=== PATIENT | female | born 1950 | race Caucasian/White ===

== ENCOUNTER 2021-05-16 08:49 | Inpatient (IN) ==
[2021-05-16] MEDS ORDERED: Ondansetron ODT 4 MG TAB.RAPDIS SL PRN (11:56)
[2021-05-16] MEDS ORDERED: Acetaminophen 325 MG TABLET PO PRN (11:56)
[2021-05-16] MEDS ORDERED: Naloxone 0.4 MG/ML INJ IVP PRN (11:56)
[2021-05-16] MEDS: *HR* OxyCODONE Immed Rel 5 MG TABLET PO PRN ×2 (12:10→16:03)
[2021-05-16] MEDS: *HR* HYDROmorphone (PF) 1 MG/ML SYRINGE IVP PRN ×2 (14:52→21:44)
[2021-05-16] MEDS: cloNIDine HCL 0.1 MG TABLET PO PRN (19:47)
[2021-05-16] MEDS ORDERED: *HR* LORazepam 2 MG/ML VIAL IVP ONE (22:01)
[2021-05-17] MEDS: *HR* OxyCODONE Immed Rel 5 MG TABLET PO PRN ×2 (00:33→12:42)
[2021-05-17] MEDS: *HR* HYDROmorphone (PF) 1 MG/ML SYRINGE IVP PRN ×2 (03:26→22:30)
[2021-05-17 04:40] LABS: Hemoglobin 11.4 g/dL (11.5-15.4); Mean Corpuscular HGB Conc 30.8 g/dL (31.6-35.5); Mean Corpuscular Hemoglobin 27.4 pg (28.0-33.3); Mean Corpuscular Volume 88.9 fL (83.0-100.0); Mean Platelet Volume 11.6 fL (9.4-12.4); Platelet Count 272 K/mcL (140-400); Red Blood Count 4.16 M/mcL (3.82-4.97); Red Cell Distribution Width 14.9 % (11.5-14.5); White Blood Count 9.7 K/mcL (4.3-11.1)
[2021-05-17 04:54] LABS: BUN/Creatinine Ratio 18 (6-26); Blood Urea Nitrogen 10 mg/dL (8-23); Calcium 8.8 mg/dL (8.6-10.3); Carbon Dioxide 25 mEq/L (23-29); Chloride 100 mEq/L (98-107); Glucose 91 mg/dL (70-105); Osmolality,Calculated 279 (280-300); Potassium 4.2 mEq/L (3.5-5.1); Sodium 135 mEq/L (136-145); eGFR For African Americans > 60 (> 60); eGFR For Non-African Americans > 60 (> 60)
[2021-05-17] MEDS: amLODIPine 5 MG TABLET PO SCH (08:03)
[2021-05-17] MEDS: Aspirin Enteric Coated 81 MG Tablet PO SCH (08:03)
[2021-05-17] MEDS ORDERED: Clindamycin 900 MG/50 ML 900 MG/50 ML IV.SOLN IVPB ONE (14:57)
[2021-05-17] MEDS: cloNIDine HCL 0.1 MG TABLET PO PRN (20:03)
[2021-05-18 01:48] LABS: Hematocrit 36.4 % (35.3-44.9); Hemoglobin 11.8 g/dL (11.5-15.4); Mean Corpuscular HGB Conc 32.4 g/dL (31.6-35.5); Mean Corpuscular Hemoglobin 28.4 pg (28.0-33.3); Mean Corpuscular Volume 87.5 fL (83.0-100.0); Mean Platelet Volume 11.7 fL (9.4-12.4); Platelet Count 254 K/mcL (140-400); Red Blood Count 4.16 M/mcL (3.82-4.97); Red Cell Distribution Width 15.1 % (11.5-14.5); White Blood Count 13.6 K/mcL (4.3-11.1)
[2021-05-18 01:56] LABS: BUN/Creatinine Ratio 27 (6-26); Blood Urea Nitrogen 16 mg/dL (8-23); Calcium 8.9 mg/dL (8.6-10.3); Carbon Dioxide 24 mEq/L (23-29); Chloride 98 mEq/L (98-107); Glucose 125 mg/dL (70-105); Osmolality,Calculated 281 (280-300); Sodium 134 mEq/L (136-145); eGFR For African Americans > 60 (> 60); eGFR For Non-African Americans > 60 (> 60)
[2021-05-18] MEDS: *HR* HYDROmorphone (PF) 1 MG/ML SYRINGE IVP PRN (06:20)
[2021-05-18] MEDS ORDERED: *HR* Rocuronium Bromide 50 MG/5 ML VIAL ONE (08:32)
[2021-05-18] MEDS ORDERED: Lidocaine HCL 4 ML Topical Solution (Laryng-O-Jet Kit Sterile Pak) TP ONE (08:32)
[2021-05-18] MEDS ORDERED: *HR* Succinylcholine 200 MG/10 ML VIAL IVP ONE (08:32)
[2021-05-18] MEDS ORDERED: Lidocaine -MPF 2% 2 ML VIAL ONE (08:32)
[2021-05-18] MEDS ORDERED: Ondansetron 4 MG/2 ML VIAL ONE (08:32)
[2021-05-18] MEDS: Aspirin Enteric Coated 81 MG Tablet PO SCH (08:42)
[2021-05-18] MEDS: amLODIPine 5 MG TABLET PO SCH (08:42)
[2021-05-18] MEDS ORDERED: *HR* HYDROmorphone PF 0.5 MG/0.5 ML SYRINGE IVP PRN ×2 (09:05→12:53)
[2021-05-18] MEDS ORDERED: Ondansetron 4 MG/2 ML VIAL IVP PRN ×2 (09:05→12:53)
[2021-05-18] MEDS ORDERED: *HR* Propofol 200 MG/20 ML VIAL IVP ONE (09:11)
[2021-05-18] MEDS ORDERED: *HR* FentaNYL (PF) 100 MCG/2 ML VIAL ONE (09:11)
[2021-05-18] MEDS ORDERED: Clindamycin 900 MG/50 ML 900 MG/50 ML IV.SOLN IVPB ONE ×2 (09:33→12:53)
[2021-05-18] MEDS ORDERED: *HR* HYDROMORPHONE 2 MG/ML VIAL ONE (10:12)
[2021-05-18] MEDS ORDERED: EPHEDrine 50 MG/ML VIAL ONE (10:23)
[2021-05-18] MEDS ORDERED: *HR* OxyCODONE Immed Rel 5 MG TABLET PO PRN ×2 (12:13→12:53)
[2021-05-18] MEDS ORDERED: Acetaminophen 325 MG TABLET PO PRN (12:53)
[2021-05-18] MEDS ORDERED: Naloxone 0.4 MG/ML INJ IVP PRN (12:53)
[2021-05-18] MEDS ORDERED: Ondansetron ODT 4 MG TAB.RAPDIS SL PRN (12:53)
[2021-05-18] MEDS ORDERED: *HR* HYDROmorphone (PF) 1 MG/ML SYRINGE IVP PRN (12:53)
[2021-05-18] MEDS ORDERED: cloNIDine HCL 0.1 MG TABLET PO PRN (12:53)
[2021-05-18] MEDS: *HR* OxyCODONE Immed Rel 5 MG TABLET PO PRN (15:09)
[2021-05-18] MEDS ORDERED: Clindamycin 900 MG/50 ML 900 MG/50 ML IV.SOLN IVPB SCH (16:00)
[2021-05-18] MEDS: Clindamycin 900 MG/50 ML 900 MG/50 ML IV.SOLN IVPB SCH (20:25)
[2021-05-19 05:20] LABS: Hematocrit 34.3 % (35.3-44.9); Hemoglobin 10.4 g/dL (11.5-15.4); Mean Corpuscular HGB Conc 30.3 g/dL (31.6-35.5); Mean Corpuscular Hemoglobin 27.1 pg (28.0-33.3); Mean Corpuscular Volume 89.3 fL (83.0-100.0); Mean Platelet Volume 11.9 fL (9.4-12.4); Platelet Count 250 K/mcL (140-400); Red Blood Count 3.84 M/mcL (3.82-4.97); Red Cell Distribution Width 15.2 % (11.5-14.5); White Blood Count 14.5 K/mcL (4.3-11.1)
[2021-05-19 05:37] LABS: BUN/Creatinine Ratio 28 (6-26); Blood Urea Nitrogen 15 mg/dL (8-23); Calcium 8.5 mg/dL (8.6-10.3); Carbon Dioxide 26 mEq/L (23-29); Chloride 100 mEq/L (98-107); Glucose 123 mg/dL (70-105); Osmolality,Calculated 282 (280-300); Potassium 4.3 mEq/L (3.5-5.1); Sodium 135 mEq/L (136-145); eGFR For African Americans > 60 (> 60); eGFR For Non-African Americans > 60 (> 60)
[2021-05-19] MEDS: Clindamycin 900 MG/50 ML 900 MG/50 ML IV.SOLN IVPB SCH (05:51)
[2021-05-19] MEDS ORDERED: *HR* Enoxaparin 40 MG/0.4 ML SYRINGE SQ SCH (06:00)
[2021-05-19] MEDS: amLODIPine 5 MG TABLET PO SCH (08:55)
[2021-05-19] MEDS: Aspirin Enteric Coated 81 MG Tablet PO SCH (08:55)
[2021-05-19] MEDS: Calcium Gluconate 1gm/50mL 1 GM/50 ML BAG IVPB SCH ×2 (09:51→10:36)
[2021-05-20] MEDS: *HR* OxyCODONE Immed Rel 5 MG TABLET PO PRN (03:02)
[2021-05-20 04:45] LABS: Hemoglobin 9.7 g/dL (11.5-15.4); Mean Corpuscular HGB Conc 31.3 g/dL (31.6-35.5); Mean Corpuscular Hemoglobin 27.6 pg (28.0-33.3); Mean Corpuscular Volume 88.1 fL (83.0-100.0); Platelet Count 273 K/mcL (140-400); Red Blood Count 3.52 M/mcL (3.82-4.97); Red Cell Distribution Width 15.5 % (11.5-14.5); White Blood Count 11.3 K/mcL (4.3-11.1)
[2021-05-20 05:01] LABS: % Iron Saturation 16 % (15-50); BUN/Creatinine Ratio 34 (6-26); Blood Urea Nitrogen 22 mg/dL (8-23); Calcium 8.6 mg/dL (8.6-10.3); Carbon Dioxide 28 mEq/L (23-29); Chloride 101 mEq/L (98-107); Glucose 95 mg/dL (70-105); Iron 31 mcg/dL (50-170); Osmolality,Calculated 285 (280-300); Phosphorous 3.1 mg/dL (2.7-4.5); Potassium 3.6 mEq/L (3.5-5.1); Sodium 136 mEq/L (136-145); Transferrin 142 mg/dL (203-362); eGFR For African Americans > 60 (> 60); eGFR For Non-African Americans > 60 (> 60)
[2021-05-20 05:17] LABS: Ferritin 316 ng/mL (10-120)
[2021-05-20 05:23] LABS: Folate 11.9 ng/mL (3.0-16.0)
[2021-05-20 05:39] LABS: Vitamin B12 > 1500 pg/mL (250-1100)
[2021-05-20] MEDS ORDERED: Iron Sucrose Complex 400 MG in 0.9 % Sodium Chloride 250 ML IVPB ONE (08:07)
[2021-05-20] MEDS ORDERED: Melatonin 3 MG TABLET PO PRN (08:10)
[2021-05-20] MEDS: amLODIPine 5 MG TABLET PO SCH (08:37)
[2021-05-20] MEDS: Aspirin Enteric Coated 81 MG Tablet PO SCH (08:37)
[2021-05-20] MEDS ORDERED: Multivit/Ca/Min/Fe/FA 1 TAB TABLET PO SCH (09:00)
[2021-05-20 11:36] VITALS: BP 101/65
[2021-05-20 11:44] LABS: Hematocrit 33.9 % (35.3-44.9); Hemoglobin 10.3 g/dL (11.5-15.4)
[2021-05-20 13:33] LABS: Adenovirus Not Detected (Not Detect); Bordetella Pertussis Not Detected (Not Detect); Chlamydophila pneumoniae Not Detected (Not Detect); Coronavirus 229E Not Detected (Not Detect); Coronavirus HKU1 Not Detected (Not Detect); Coronavirus NL63 Not Detected (Not Detect); Coronavirus OC43 Not Detected (Not Detect); Human Metapneumovirus Not Detected (Not Detect); Human Rhinovirus/Enterovirus Not Detected (Not Detect); Influenza A Subtype 2009 H1 Not Detected (Not Detect); Influenza B Not Detected (Not Detect); Mycoplasma pneumoniae Not Detected (Not Detect); Parainfluenza Virus 1 Not Detected (Not Detect); Parainfluenza Virus 2 Not Detected (Not Detect); Parainfluenza Virus 3 Not Detected (Not Detect); Parainfluenza Virus 4 Not Detected (Not Detect); Respiratory Syncytial Virus Not Detected (Not Detect); SARS-CoV-2 Not Detected (Not Detect)
[2021-05-20] MEDS ORDERED: *HR* Rivaroxaban 10 MG TABLET PO SCH (17:00)
== END 2021-05-20 15:24 | disposition other institution (70) | DRG 482 ==
LOC: 3NENU → SUATTDRO 11:56
PROVIDERS: ADMIT Internal Medicine; ATTEND Internal Medicine

== ENCOUNTER 2021-07-14 11:09 | Inpatient (IN) ==
[2021-07-14] MEDS ORDERED: Naloxone 0.4 MG/ML INJ IVP PRN (12:17)
[2021-07-14] MEDS ORDERED: Ondansetron 4 MG/2 ML VIAL IVP PRN ×2 (12:17→18:14)
[2021-07-14] MEDS ORDERED: Morphine Sulfate 2 MG/ML SYRINGE IVP PRN ×2 (12:26→18:14)
[2021-07-14] MEDS ORDERED: 0.9 % Sodium Chloride 1,000 ML IVC SCH (12:30)
[2021-07-14] MEDS ORDERED: Albumin Human 5% 25.0 GM/500 ML IV.SOLN ONE (13:20)
[2021-07-14] MEDS ORDERED: *HR* Norepinephrine 4 MG/4 ML VIAL IVC ONE (13:20)
[2021-07-14] MEDS ORDERED: *HR* Vasopressin 20 UNIT/ML VIAL ONE (13:20)
[2021-07-14] MEDS ORDERED: *HR* Succinylcholine 200 MG/10 ML VIAL IVP ONE (13:21)
[2021-07-14] MEDS ORDERED: Lidocaine -MPF 2% 2 ML VIAL ONE (13:21)
[2021-07-14] MEDS ORDERED: CefOXitin 1,000 MG VIAL ONE ×2 (13:21→14:54)
[2021-07-14] MEDS ORDERED: *HR* Rocuronium Bromide 50 MG/5 ML VIAL ONE ×2 (13:21→14:11)
[2021-07-14] MEDS ORDERED: *HR* Etomidate 40 MG/20 ML VIAL IVP ONE (13:22)
[2021-07-14] MEDS ORDERED: *HR* Propofol 200 MG/20 ML VIAL IVP ONE (13:22)
[2021-07-14] MEDS ORDERED: Heparin 1,000 UNITS/500 mL 500 ML ONE (13:24)
[2021-07-14] MEDS ORDERED: *HR* FentaNYL (PF) 100 MCG/2 ML VIAL ONE (13:28)
[2021-07-14] MEDS ORDERED: EPHEDrine 50 MG/ML VIAL ONE (13:29)
[2021-07-14] MEDS ORDERED: EPINEPHrine 1 MG/ML VIAL ONE (13:29)
[2021-07-14] MEDS ORDERED: *HR* HYDROmorphone PF 0.5 MG/0.5 ML SYRINGE IVP PRN (13:43)
[2021-07-14] MEDS ORDERED: CefOXitin 2,000 MG VIAL ONE (13:47)
[2021-07-14] MEDS ORDERED: Fluconazole 400 MG/200 ML 400 MG/200 ML BAG IVPB SCH (14:00)
[2021-07-14 14:01] LABS: Influenza A PCR Negative (Negative); Influenza B PCR Negative (Negative); Resp. Syncytial Virus PCR Negative (Negative)
[2021-07-14 14:23] LABS: ABG Base Excess -9 mEq/L (-2 to 3); ABG Chloride 110 mEq/L (98-107); ABG Glucose 87 mg/dL (60-95); ABG HCO3 17 mEq/L (21-27); ABG Ionized Calcium 0.97 mmol/L (1.15-1.35); ABG Oxygen Saturation 100 % (95-98); ABG PCO2 38 mmHg (35-45); ABG PH 7.27 pH Units (7.32-7.45); ABG PO2 337 mmHg (85-104); ABG TCO2 19 mEq/L (20-26)
[2021-07-14 14:43] LABS: SARS-CoV-2 by PCR (In House) Negative (Negative)
[2021-07-14] MEDS ORDERED: Sugammadex Sodium 200 MG/2 ML VIAL IV ONE (14:54)
[2021-07-14] MEDS ORDERED: *HR* HYDROMORPHONE 2 MG/ML VIAL ONE (14:54)
[2021-07-14] MEDS ORDERED: Ondansetron 4 MG/2 ML VIAL ONE (14:58)
[2021-07-14] MEDS ORDERED: Albumin Human 5% 12.5 GM/250 ML IV.SOLN ONE (15:51)
[2021-07-14] MEDS ORDERED: MetroNIDAZOLE 500 MG/100 ML 500 MG/100 ML BAG IVPB SCH (16:00)
[2021-07-14] MEDS ORDERED: 0.9 % Sodium Chloride 500 ML IV ONE (16:25)
[2021-07-14] MEDS ORDERED: Albumin 25% 25gram/100mL 25 GM/100 ML IV.SOLN IVPB ONE (17:35)
[2021-07-14] MEDS ORDERED: *HR* Heparin 5,000 UNIT/ML VIAL SQ SCH (18:00)
[2021-07-14] MEDS: 0.9 % Sodium Chloride 1,000 ML IVC SCH (18:59)
[2021-07-15] MEDS: MetroNIDAZOLE 500 MG/100 ML 500 MG/100 ML BAG IVPB SCH ×3 (02:50→17:16)
[2021-07-15] MEDS: 0.9 % Sodium Chloride 1,000 ML IVC SCH ×2 (05:47→14:56)
[2021-07-15 07:08] LABS: Hematocrit 27.6 % (35.3-44.9); Hemoglobin 8.7 g/dL (11.5-15.4); Mean Corpuscular HGB Conc 31.5 g/dL (31.6-35.5); Mean Corpuscular Hemoglobin 28.2 pg (28.0-33.3); Mean Corpuscular Volume 89.3 fL (83.0-100.0); Mean Platelet Volume 11.7 fL (9.4-12.4); Platelet Count 227 K/mcL (140-400); Red Blood Count 3.09 M/mcL (3.82-4.97); Red Cell Distribution Width 19.5 % (11.5-14.5); White Blood Count 9.6 K/mcL (4.3-11.1)
[2021-07-15 07:27] LABS: Calcium 8.1 mg/dL (8.6-10.3); Magnesium 1.9 mg/dL (1.6-2.6); Phosphorous 4.6 mg/dL (2.7-4.5); Potassium 4.5 mEq/L (3.5-5.1)
[2021-07-15 07:55] LABS: Anisocytosis 1+ (Not Present); Lymphocytes # 0.8 K/mcL (0.6-4.6); Monocytes # 0.5 K/mcL (0.0-1.3); Neutrophils # 8.4 K/mcL (1.6-8.9); Platelet Estimate Normal (Normal)
[2021-07-15 08:37] LABS: VBG HCO3 20 mEq/L (21-27); VBG PCO2 33 mmHg (41-51); VBG PH 7.39 pH Units (7.32-7.42); VBG PO2 189 mmHg (25-50)
[2021-07-15] MEDS: Pantoprazole 40 MG VIAL IVP SCH (09:11)
[2021-07-15 13:20] LABS: Hematocrit 28.6 % (35.3-44.9); Hemoglobin 8.7 g/dL (11.5-15.4)
[2021-07-15] MEDS: Acetaminophen IV 1,000 MG/100 ML BAG IVPB SCH ×3 (14:26→23:32)
[2021-07-15] MEDS: Fluconazole 200 MG/100 ML 200 MG/100 ML BAG IVPB SCH (14:56)
[2021-07-15] MEDS: Levalbuterol Neb 0.63 MG/3 ML IH SCH ×2 (15:19→22:11)
[2021-07-16] MEDS: MetroNIDAZOLE 500 MG/100 ML 500 MG/100 ML BAG IVPB SCH ×3 (01:22→17:51)
[2021-07-16] MEDS: Levalbuterol Neb 0.63 MG/3 ML IH SCH ×4 (03:35→21:21)
[2021-07-16] MEDS: Acetaminophen IV 1,000 MG/100 ML BAG IVPB SCH (05:22)
[2021-07-16 05:32] LABS: Basophils % 0.4 %; Eosinophils # 0.1 K/mcL (0.0-0.6); Eosinophils % 0.5 %; Hematocrit 28.2 % (35.3-44.9); Hemoglobin 8.5 g/dL (11.5-15.4); Immature Granulocytes % 0.7 % (0-4); Lymphocytes # 1.2 K/mcL (0.6-4.6); Lymphocytes % 12.4 %; Mean Corpuscular HGB Conc 30.1 g/dL (31.6-35.5); Mean Corpuscular Hemoglobin 27.2 pg (28.0-33.3); Mean Corpuscular Volume 90.1 fL (83.0-100.0); Mean Platelet Volume 12.3 fL (9.4-12.4); Monocytes # 0.8 K/mcL (0.0-1.3); Monocytes % 8.5 %; Neutrophils # 7.7 K/mcL (1.6-8.9); Platelet Count 223 K/mcL (140-400); Red Blood Count 3.13 M/mcL (3.82-4.97); Red Cell Distribution Width 20.1 % (11.5-14.5); Segmented Neutrophils % 77.5 %; White Blood Count 9.9 K/mcL (4.3-11.1)
[2021-07-16 05:33] LABS: Calcium 8.3 mg/dL (8.6-10.3); Magnesium 1.9 mg/dL (1.6-2.6); Phosphorous 4.9 mg/dL (2.7-4.5); Potassium 4.7 mEq/L (3.5-5.1)
[2021-07-16] MEDS: Fluconazole 200 MG/100 ML 200 MG/100 ML BAG IVPB SCH (11:15)
[2021-07-16] MEDS: Pantoprazole 40 MG VIAL IVP SCH (11:16)
[2021-07-16] MEDS ORDERED: Acetaminophen 325 MG TABLET PO PRN (11:42)
[2021-07-16] MEDS: Erythromycin OPTH Oint BOTH EYES SCH ×4 (12:56→20:58)
[2021-07-16] MEDS ORDERED: Perflutren Lipid Microsphere 1.3 ML in 0.9 % Sodium Chloride 8.7 ML IVP PRN (14:58)
[2021-07-16] MEDS: 0.9 % Sodium Chloride 1,000 ML IVC SCH (15:32)
[2021-07-16] MEDS ORDERED: *HR* LORazepam 2 MG/ML VIAL IVP ONE (21:16)
[2021-07-17] MEDS: Levalbuterol Neb 0.63 MG/3 ML IH SCH ×4 (04:58→21:40)
[2021-07-17] MEDS: MetroNIDAZOLE 500 MG/100 ML 500 MG/100 ML BAG IVPB SCH ×3 (05:15→19:52)
[2021-07-17 06:06] LABS: % Iron Saturation 10 % (15-50); BUN/Creatinine Ratio 32 (6-26); Blood Urea Nitrogen 31 mg/dL (8-23); Calcium 8.5 mg/dL (8.6-10.3); Carbon Dioxide 18 mEq/L (23-29); Chloride 112 mEq/L (98-107); Glucose 77 mg/dL (70-105); Iron 15 mcg/dL (50-170); Magnesium 1.9 mg/dL (1.6-2.6); Osmolality,Calculated 303 (280-300); Phosphorous 3.7 mg/dL (2.7-4.5); Potassium 4.2 mEq/L (3.5-5.1); Sodium 144 mEq/L (136-145); Transferrin 104 mg/dL (203-362); eGFR For African Americans > 60 (> 60); eGFR For Non-African Americans 56 (> 60)
[2021-07-17 06:17] LABS: Ferritin 342 ng/mL (10-120)
[2021-07-17 06:31] LABS: Folate 7.6 ng/mL (3.0-16.0)
[2021-07-17 06:33] LABS: Vitamin B12 > 1500 pg/mL (250-1100)
[2021-07-17] MEDS: Fluconazole 200 MG/100 ML 200 MG/100 ML BAG IVPB SCH (08:51)
[2021-07-17] MEDS: Pantoprazole 40 MG VIAL IVP SCH (08:51)
[2021-07-17] MEDS: Erythromycin OPTH Oint BOTH EYES SCH ×4 (09:19→20:03)
[2021-07-17 11:17] LABS: Basophils # 0.1 K/mcL (0.0-0.2); Basophils % 0.4 %; Eosinophils # 0.2 K/mcL (0.0-0.6); Eosinophils % 1.6 %; Hematocrit 31.6 % (35.3-44.9); Hemoglobin 9.4 g/dL (11.5-15.4); Immature Granulocytes % 0.9 % (0-4); Lymphocytes # 1.9 K/mcL (0.6-4.6); Lymphocytes % 13.5 %; Mean Corpuscular HGB Conc 29.7 g/dL (31.6-35.5); Mean Corpuscular Volume 90.8 fL (83.0-100.0); Monocytes % 6.9 %; Neutrophils # 10.9 K/mcL (1.6-8.9); Platelet Count 268 K/mcL (140-400); Red Blood Count 3.48 M/mcL (3.82-4.97); Red Cell Distribution Width 20.5 % (11.5-14.5); Segmented Neutrophils % 76.7 %; White Blood Count 14.3 K/mcL (4.3-11.1)
[2021-07-17] MEDS: *HR* Heparin 5,000 UNIT/ML VIAL SQ SCH (17:03)
[2021-07-18 01:37] LABS: Basophils # 0.1 K/mcL (0.0-0.2); Basophils % 0.6 %; Eosinophils # 0.5 K/mcL (0.0-0.6); Eosinophils % 3.9 %; Hematocrit 30.5 % (35.3-44.9); Hemoglobin 9.1 g/dL (11.5-15.4); Immature Platelets 9.6 % (1.1-6.1); Lymphocytes # 1.8 K/mcL (0.6-4.6); Lymphocytes % 13.4 %; Mean Corpuscular HGB Conc 29.8 g/dL (31.6-35.5); Mean Corpuscular Hemoglobin 26.8 pg (28.0-33.3); Mean Platelet Volume 12.4 fL (9.4-12.4); Monocytes # 0.9 K/mcL (0.0-1.3); Neutrophils # 9.9 K/mcL (1.6-8.9); Nucleated Red Blood Cells 0.2 /100 WBC (0); Platelet Count 261 K/mcL (140-400); Red Blood Count 3.39 M/mcL (3.82-4.97); Red Cell Distribution Width 20.6 % (11.5-14.5); Segmented Neutrophils % 74.1 %; White Blood Count 13.3 K/mcL (4.3-11.1)
[2021-07-18 01:45] LABS: BUN/Creatinine Ratio 28 (6-26); Blood Urea Nitrogen 29 mg/dL (8-23); Calcium 8.6 mg/dL (8.6-10.3); Carbon Dioxide 18 mEq/L (23-29); Chloride 109 mEq/L (98-107); Glucose 75 mg/dL (70-105); Magnesium 1.8 mg/dL (1.6-2.6); Osmolality,Calculated 299 (280-300); Potassium 4.4 mEq/L (3.5-5.1); Sodium 142 mEq/L (136-145); eGFR For African Americans > 60 (> 60); eGFR For Non-African Americans 54 (> 60)
[2021-07-18 02:04] LABS: Platelet Estimate Normal (Normal)
[2021-07-18] MEDS: Levalbuterol Neb 0.63 MG/3 ML IH SCH ×4 (03:22→21:06)
[2021-07-18] MEDS: *HR* Heparin 5,000 UNIT/ML VIAL SQ SCH ×2 (06:28→18:02)
[2021-07-18] MEDS: MetroNIDAZOLE 500 MG/100 ML 500 MG/100 ML BAG IVPB SCH ×3 (06:28→20:50)
[2021-07-18] MEDS: Pantoprazole 40 MG VIAL IVP SCH (11:22)
[2021-07-18] MEDS: Erythromycin OPTH Oint BOTH EYES SCH ×4 (11:23→20:55)
[2021-07-18] MEDS: Fluconazole 200 MG/100 ML 200 MG/100 ML BAG IVPB SCH (11:24)
[2021-07-18] MEDS: Furosemide 20 MG/2 ML VIAL IVP SCH (18:02)
[2021-07-18] MEDS: Iron Sucrose Complex 200 MG in 0.9 % Sodium Chloride 100 ML IVPB SCH (19:21)
[2021-07-19] MEDS: Levalbuterol Neb 0.63 MG/3 ML IH SCH ×2 (02:57→09:47)
[2021-07-19] MEDS: MetroNIDAZOLE 500 MG/100 ML 500 MG/100 ML BAG IVPB SCH ×3 (05:02→20:21)
[2021-07-19] MEDS: *HR* Heparin 5,000 UNIT/ML VIAL SQ SCH ×2 (05:02→17:39)
[2021-07-19 05:43] LABS: Basophils # 0.1 K/mcL (0.0-0.2); Basophils % 0.6 %; Eosinophils % 8.2 %; Hematocrit 30.1 % (35.3-44.9); Hemoglobin 9.3 g/dL (11.5-15.4); Immature Granulocytes % 1.6 % (0-4); Lymphocytes # 1.6 K/mcL (0.6-4.6); Lymphocytes % 12.8 %; Mean Corpuscular HGB Conc 30.9 g/dL (31.6-35.5); Mean Corpuscular Hemoglobin 27.2 pg (28.0-33.3); Mean Platelet Volume 11.7 fL (9.4-12.4); Monocytes # 1.1 K/mcL (0.0-1.3); Monocytes % 8.5 %; Neutrophils # 8.6 K/mcL (1.6-8.9); Nucleated Red Blood Cells 0.2 /100 WBC (0); Platelet Count 260 K/mcL (140-400); Red Blood Count 3.42 M/mcL (3.82-4.97); Red Cell Distribution Width 20.3 % (11.5-14.5); Segmented Neutrophils % 68.3 %; White Blood Count 12.5 K/mcL (4.3-11.1)
[2021-07-19 05:51] LABS: BUN/Creatinine Ratio 21 (6-26); Blood Urea Nitrogen 22 mg/dL (8-23); Calcium 8.2 mg/dL (8.6-10.3); Carbon Dioxide 20 mEq/L (23-29); Chloride 108 mEq/L (98-107); Glucose 75 mg/dL (70-105); Magnesium 1.7 mg/dL (1.6-2.6); Osmolality,Calculated 290 (280-300); Phosphorous 2.3 mg/dL (2.7-4.5); Potassium 4.1 mEq/L (3.5-5.1); Sodium 139 mEq/L (136-145); eGFR For African Americans > 60 (> 60); eGFR For Non-African Americans 52 (> 60)
[2021-07-19] MEDS: Furosemide 20 MG/2 ML VIAL IVP SCH (07:23)
[2021-07-19] MEDS: Fluconazole 200 MG/100 ML 200 MG/100 ML BAG IVPB SCH (07:23)
[2021-07-19] MEDS: Pantoprazole 40 MG VIAL IVP SCH (07:24)
[2021-07-19] MEDS: Erythromycin OPTH Oint BOTH EYES SCH ×4 (07:25→20:22)
[2021-07-19] MEDS: Iron Sucrose Complex 200 MG in 0.9 % Sodium Chloride 100 ML IVPB SCH (08:50)
[2021-07-19] MEDS ORDERED: Levalbuterol Neb 0.63 MG/3 ML IH PRN (14:20)
[2021-07-20] MEDS: MetroNIDAZOLE 500 MG/100 ML 500 MG/100 ML BAG IVPB SCH ×3 (06:10→20:03)
[2021-07-20] MEDS: *HR* Heparin 5,000 UNIT/ML VIAL SQ SCH ×2 (06:13→17:32)
[2021-07-20 06:26] LABS: Basophils # 0.1 K/mcL (0.0-0.2); Basophils % 0.5 %; Eosinophils # 0.9 K/mcL (0.0-0.6); Eosinophils % 6.8 %; Hematocrit 31.1 % (35.3-44.9); Hemoglobin 9.4 g/dL (11.5-15.4); Immature Granulocytes % 2.3 % (0-4); Lymphocytes # 1.9 K/mcL (0.6-4.6); Lymphocytes % 15.1 %; Mean Corpuscular HGB Conc 30.2 g/dL (31.6-35.5); Mean Corpuscular Hemoglobin 26.8 pg (28.0-33.3); Mean Corpuscular Volume 88.6 fL (83.0-100.0); Mean Platelet Volume 11.2 fL (9.4-12.4); Monocytes # 0.9 K/mcL (0.0-1.3); Monocytes % 7.3 %; Neutrophils # 8.5 K/mcL (1.6-8.9); Nucleated Red Blood Cells 0.2 /100 WBC (0); Platelet Count 280 K/mcL (140-400); Red Blood Count 3.51 M/mcL (3.82-4.97); Red Cell Distribution Width 20.6 % (11.5-14.5); White Blood Count 12.5 K/mcL (4.3-11.1)
[2021-07-20 06:29] LABS: Calcium 8.4 mg/dL (8.6-10.3); Magnesium 1.6 mg/dL (1.6-2.6); Phosphorous 2.4 mg/dL (2.7-4.5)
[2021-07-20] MEDS: Fluconazole 200 MG/100 ML 200 MG/100 ML BAG IVPB SCH (08:02)
[2021-07-20] MEDS: Pantoprazole 40 MG VIAL IVP SCH (08:02)
[2021-07-20] MEDS: Furosemide 20 MG/2 ML VIAL IVP SCH (08:02)
[2021-07-20] MEDS: Erythromycin OPTH Oint BOTH EYES SCH ×4 (08:03→20:03)
[2021-07-20] MEDS: Iron Sucrose Complex 200 MG in 0.9 % Sodium Chloride 100 ML IVPB SCH (09:45)
[2021-07-20] MEDS ORDERED: D5% in Water 1,000 ML IVC PRN (12:17)
[2021-07-20] MEDS ORDERED: Dextrose Gel 15 GM/37.5 ML TUBE PO PRN ×2 (12:17)
[2021-07-20] MEDS ORDERED: *HR* Dextrose 50 % in Water (Vial) 50 ML VIAL IVP PRN (12:17)
[2021-07-20 22:15] LABS: Lambda Qnt Free Light Chains 12.63 mg/L (5.71-26.30)
[2021-07-21 05:34] LABS: Basophils # 0.1 K/mcL (0.0-0.2); Basophils % 0.7 %; Eosinophils # 0.7 K/mcL (0.0-0.6); Eosinophils % 5.4 %; Hematocrit 31.6 % (35.3-44.9); Hemoglobin 9.8 g/dL (11.5-15.4); Lymphocytes # 2.1 K/mcL (0.6-4.6); Mean Corpuscular Volume 87.1 fL (83.0-100.0); Mean Platelet Volume 11.2 fL (9.4-12.4); Monocytes # 1.1 K/mcL (0.0-1.3); Monocytes % 8.2 %; Neutrophils # 8.6 K/mcL (1.6-8.9); Nucleated Red Blood Cells 0.2 /100 WBC (0); Platelet Count 290 K/mcL (140-400); Red Blood Count 3.63 M/mcL (3.82-4.97); Red Cell Distribution Width 20.4 % (11.5-14.5); Segmented Neutrophils % 66.7 %; White Blood Count 12.8 K/mcL (4.3-11.1)
[2021-07-21] MEDS: *HR* Heparin 5,000 UNIT/ML VIAL SQ SCH ×2 (05:39→18:09)
[2021-07-21] MEDS: MetroNIDAZOLE 500 MG/100 ML 500 MG/100 ML BAG IVPB SCH ×2 (05:40→16:22)
[2021-07-21 05:50] LABS: Calcium 8.2 mg/dL (8.6-10.3); Magnesium 1.5 mg/dL (1.6-2.6); Phosphorous 2.4 mg/dL (2.7-4.5); Potassium 3.9 mEq/L (3.5-5.1)
[2021-07-21 08:12] LABS: Alpha 2 Globulin (PEP) 0.82 g/dL (0.48-1.05); Beta Globulin (PEP) 0.39 g/dL (0.48-1.10)
[2021-07-21 08:50] LABS: Kappa Qnt Free Light Chains 19.52 mg/L (3.30-19.40)
[2021-07-21 08:51] LABS: Immunoglobulin G 529 mg/dL (768-1632)
[2021-07-21 08:52] LABS: IFE Reflexed IFE Done; Immunoglobulin A 103 mg/dL (68-408); Immunoglobulin M 36 mg/dL (35-263)
[2021-07-21] MEDS: Fluconazole 200 MG/100 ML 200 MG/100 ML BAG IVPB SCH (10:17)
[2021-07-21] MEDS: Pantoprazole 40 MG VIAL IVP SCH (10:17)
[2021-07-21] MEDS: Furosemide 20 MG/2 ML VIAL IVP SCH (10:18)
[2021-07-21] MEDS: Erythromycin OPTH Oint BOTH EYES SCH ×3 (10:18→18:48)
[2021-07-21 11:40] VITALS: BP 101/61; PULSE 102; TEMP 97.5; O2SAT 94
[2021-07-21] MEDS ORDERED: metroNIDAZOLE 500 MG TABLET PO ONE (16:17)
[2021-07-21 16:25] LABS: Influenza A PCR Negative (Negative); Influenza B PCR Negative (Negative); Resp. Syncytial Virus PCR Negative (Negative)
[2021-07-21 17:04] LABS: SARS-CoV-2 by PCR (In House) Negative (Negative)
== END 2021-07-21 19:43 | disposition other institution (70) | DRG 871 ==
LOC: 3ANU → SUATTDRO 12:17
PROVIDERS: ADMIT Internal Medicine; ATTEND Internal Medicine